=== PATIENT | male | born 1970 | race African-American/Black ===

== ENCOUNTER 2022-05-28 23:09 | Emergency (ER) | payer OTHER ==
[~2022-05-28] VITALS: Ht 177.8 cm; Wt 79.4 kg
[2022-05-28 23:26] VITALS: BP 130/70
[2022-05-28] MEDS ORDERED: IBUPROFEN 400 MG TABLET ONE (23:52)
[2022-05-29] MEDS ORDERED: IBUPROFEN 400 MG TABLET PO ONE
--- NOTE | 2022-05-29 00:17 | NUR ---
Patient eloped from facility. ER MD notified.
== END 2022-05-29 00:18 | disposition left against medical advice (07) ==
LOC: ER 23:14
DX: S63.502A Unspecified sprain of left wrist, initial encounter (principal); Z60.2 Problems related to living alone; X50.9XXA Other and unspecified overexertion or strenuous movements or postures, initial encounter; Y93.89 Activity, other specified; Y92.89 Other specified places as the place of occurrence of the external cause; Y99.8 Other external cause status
CPT/HCPCS: 73110